=== PATIENT | female | born 1945 | race Caucasian/White ===

== ENCOUNTER 2021-02-01 17:13 | Inpatient (IN) | payer OTHER ==
[~2021-02-01] VITALS: Ht 165.1 cm; Wt 72.5 kg
[2021-02-01 17:20] VITALS: BP 205/93
[2021-02-01] MEDS ORDERED: BACTRIM DS TAB1 EACH PO (17:29)
[2021-02-01] MEDS ORDERED: LIPITOR40 MG PO (17:29)
[2021-02-01] MEDS ORDERED: METFORMIN HCL500 M3 PO (17:29)
[2021-02-01 17:35] LABS: URINE BLOOD 3+ (Negative); URINE CLARITY CLOUDY; URINE COLOR BROWN; URINE GLUCOSE-RANDOM NEGATIVE (Negative); URINE KETONES TRACE (Negative); URINE PROTEIN 3+ (Negative)
[2021-02-01 17:36] LABS: HEMATOCRIT 32.6 % (37.0-47.0); HEMOGLOBIN 10.5 gm/dL (12.0-15.0); MCH 26.7 pg (26.0-34.0); MCHC 32.2 g/dL (28.0-37.0); MCV 82.9 fL (80.0-100.0); MPV 7.5 fl. (7.2-11.1); RBC 3.94 mil/uL (4.20-5.00); WBC 14.6 thou/uL (4.0-11.0)
[2021-02-01 17:37] LABS: ICTOTEST (BILI CONFIRMATORY) Negative (Negative); URINE BILIRUBIN 2+ (Negative); URINE LEUKOCYTES-REFLEX 3+ (Negative); URINE NITRITE-REFLEX POSITIVE (Negative)
[2021-02-01 17:41] LABS: BACTERIA-REFLEX >30 Many /HPF (None Seen); CASTS None Seen /LPF (None Seen); CRYSTALS None Seen /LPF (None Seen); SQUAMOUS 0-3 Few /LPF (0-3); URINE RBC >20 Many /HPF (0-2); URINE WBC-REFLEX >25 Many /HPF (0-5)
[2021-02-01 17:45] LABS: CALCIUM 8.8 mg/dL (8.5-10.1); CREATININE 1.7 mg/dL (0.6-1.3); POTASSIUM 3.9 mmol/L (3.5-5.1)
[2021-02-01 19:53] VITALS: BP 152/84
[2021-02-01 20:44] VITALS: BP 174/87
[2021-02-01] MEDS ORDERED: RESTORIL30 MG PO (21:26)
[2021-02-01] MEDS ORDERED: GABAPENTIN100 MG PO (21:27)
[2021-02-01] MEDS ORDERED: HYDROCHLOROTH12.5 M2 PO (21:28)
[2021-02-01] MEDS ORDERED: VENLAFAXINE HC150 MG PO (21:28)
[2021-02-01] MEDS ORDERED: LISINOPRIL20 MG PO (21:29)
[2021-02-01] MEDS ORDERED: IBUPROFEN200 MG PO (21:30)
[2021-02-01] MEDS ORDERED: ACETAMINOPHEN650 M5 PO (21:31)
[2021-02-01 23:51] VITALS: BP 135/58
[2021-02-02 04:00] VITALS: BP 148/70
[2021-02-02 07:56] VITALS: BP 164/82
--- NOTE | 2021-02-02 08:01 | NUR ---
PT ADMITTED TO ROOM 222 DURING ARRT TECHNOLOGIST; VSS, A+OX4, ROOM AIR, NS INFUSING, UP SBA, FALL RISK. SHE IS ABLE TO COMMUNICATE HER NEEDS TO STAFF EFFECTIVELY. CURRENT PAIN MEDICATION REGIMEN HAS BEEN ADEQUATE FOR CONTROLLING HER PAIN UP TO THIS TIME.
--- NOTE | 2021-02-02 08:28 | NUR ---
ASSUMED CARE OF PT THIS AM AROUND 714- ARGON TESTER IN PLACE ORDERED, TRACING SR- UPON ASSESSMENT PT NOTED TO BE RESTING IN BED- A&O X4, ANXIOUS ABOUT WNATING TO GO HOME THIS AM- SBA WITH TRANSFERS FOR SAFETY- CONT OF B/B- LCTA, RESP EVEN AND UN-LABORED- VSS, O2 SAT 95% ON RA- ABD SOFT/ROUND/NON-TENDER, BS X4 QUADS- LAST BM REPORTED X2 DAYS AGO- IV NOTED TO RIGHT WRIST INTACT, IVF INFUSSING PRESCIBED- BS MONITORED ORDERED- PT DENIES ANY C/O PAIN/DISCOMFORT AT THIS TIME- CALL LIGHT AND PERSONAL BELONGINGS WITH IN REACH- HOURLY ROUNDS IN PLACE R/T SAFETY/NEEDS- ALL NEEDS MET AT THIS TIME
--- NOTE | 2021-02-02 10:41 | NUR ---
CM ASSESSMENT: PT A&O, INDEPENDENT WITH ADL'S, AND ACTIVE. PT RESIDES AT HOME WITH SPOUSE. PT USES 0 DME. PT HAS 0 HX OF HH OR SNF. NO CM D/C PLANNING NEEDS ANTICIPATED. CM WILL REMAIN AVAILABLE TO ASSIST AND FOLLOW NEEDED.
--- NOTE | 2021-02-02 11:28 | EKG ---
[place] [address] ELECTROCARDIOGRAM REPORT Name: PRESTON JAIN Room: [address] [place] .#: [id number] Admission: 02/01/21 Attend Phys: Damien Mario, Discharge: Date of : 47 Date of Service: 02/01/21 1743 Report #: [id number] THIS REPORT FOR: //name// [facility] ED Test Date: 2021-02-01 Test Time: 17:43:13 Pat Name: PRESTON JAIN Department: Patient ID: [id number]- Room: Gender: F Trader: : 1942-04-01 Requested By: Emeterio Meza Order Number: [id number] MD: Bjorn Eaton Measurements Intervals Pioneer Rate: 105 P: 61 MN: 161 QRS: 46 QRSD: 77 T: 44 QT: 329 QTc: 435 Interpretive Statements Sinus tachycardia Anterior infarct, old Possible anterior scar No previous ECG available for comparison Electronically Signed On 02-02-2021 11:28:35 CDT by Bjorn Eaton [email or web address] <ELECTRONICALLY SIGNED> By: Bjorn Eaton MD, [facility] 02/02/21 1128 1743 1743 Bjorn Eaton MD, [facility] /EPI
[2021-02-02 11:56] VITALS: BP 150/87
[2021-02-02 16:00] VITALS: BP 176/86
[2021-02-02 20:00] VITALS: BP 195/92
[2021-02-03 01:03] VITALS: BP 151/59
--- NOTE | 2021-02-03 02:31 | NUR ---
PT ADMIT TO ROOM 223 AT 1999. ALERT ORIENTED. MED REC UPDATED. DR BURDICK NOTIFIED. HOME MEDS NOT RESTARTED. PT ON CARDIZEM QTT AT 5MG/HR. PT AFIB 100-120. ON 2 LITERS NC. UP AD LUBNA IN ROOM.
[2021-02-03 04:04] VITALS: BP 165/86
[2021-02-03 04:21] LABS: HEMATOCRIT 31.4 % (37.0-47.0); HEMOGLOBIN 10.5 gm/dL (12.0-15.0); MCH 27.3 pg (26.0-34.0); MCHC 33.4 g/dL (28.0-37.0); MCV 81.8 fL (80.0-100.0); MPV 7.8 fl. (7.2-11.1); RBC 3.84 mil/uL (4.20-5.00); RDW-CV 15.1 % (10.5-14.5); WBC 6.8 thou/uL (4.0-11.0)
[2021-02-03 04:32] LABS: CALCIUM 8.7 mg/dL (8.5-10.1); POTASSIUM 3.6 mmol/L (3.5-5.1)
[2021-02-03 08:00] VITALS: BP 185/92
[2021-02-03 12:00] VITALS: BP 142/78
[2021-02-03 16:00] VITALS: BP 147/76
[2021-02-03 20:00] VITALS: BP 181/94
[2021-02-04] VITALS: BP 160/86
--- NOTE | 2021-02-04 01:24 | NUR ---
PT ALERT ORIENTED. UP AD LUBNA IN ROOM. AIR QUALITY SPECIALIST TRACING SR 90S. PT HAS PROBABLE DC TOMORROW.
[2021-02-04 04:00] VITALS: BP 168/88
[2021-02-04] MEDS ORDERED: CEFDINIR300 MG PO (07:48)
[2021-02-04 08:00] VITALS: BP 166/114
[2021-02-04 09:09] VITALS: BP 166/114
--- NOTE | 2021-02-04 09:46 | NUR ---
VS CHARTED, SR ON TELE, ROOM AIR, UP AD LUBNA, HOURLY ROUNDING PERFORMED, POSSESSIONS WITHIN REACH. REC DISCHARGE ORDERS, REVIEWED WITH PATIENT, CARE NOTE GIVEN, MEDS ORDERED ELECTRONICALLY, TELE MONITOR AND IV REMOVED WITHOUT COMPLICATION, PATIENT TAKEN IN WHEELCHAIR BY NURSING STAFF TO ER EXIT, PICKED UP BY SPOUSE IN FAMILY CAR
== END 2021-02-04 10:11 | disposition home or self-care (01) | DRG 871 ==
LOC: EDBD 17:13 → M.ERS 17:13 → M.2W 18:02 → M.TBA-ER 18:02 → M.2W 20:15
PROVIDERS: Emergency Medicine Emergency Medical Services; Family Medicine; ADMIT Internal Medicine; ATTEND Internal Medicine
DX: A41.9 Sepsis, unspecified organism (principal); N17.0 Acute kidney failure with tubular necrosis; N39.0 Urinary tract infection, site not specified; E87.1 Hypo-osmolality and hyponatremia; I16.0 Hypertensive urgency; B96.89 Other specified bacterial agents as the cause of diseases classified elsewhere; I10 Essential (primary) hypertension; E78.5 Hyperlipidemia, unspecified; E11.65 Type 2 diabetes mellitus with hyperglycemia; Z20.822 Contact with and (suspected) exposure to COVID-19; Z79.84 Long term (current) use of oral hypoglycemic drugs; Z79.899 Other long term (current) drug therapy

== ENCOUNTER 2021-03-27 12:45 | Emergency (ER) | payer OTHER ==
[~2021-03-27] VITALS: Ht 165.1 cm; Wt 65.8 kg
[~2021-03-27 12:45] MED LIST: ACETAMINOPHEN650 M5 PO; BACTRIM DS TAB1 EACH PO; CEFDINIR300 MG PO; GABAPENTIN100 MG PO; HYDROCHLOROTH12.5 M2 PO; IBUPROFEN200 MG PO; LIPITOR40 MG PO; LISINOPRIL20 MG PO; METFORMIN HCL500 M3 PO; RESTORIL30 MG PO; VENLAFAXINE HC150 MG PO
[2021-03-27] MEDS ORDERED: NORCO5 PO ×2 (16:06→16:09)
[2021-03-27 16:38] VITALS: BP 205/105
== END 2021-03-27 16:39 | disposition home or self-care (01) ==
LOC: M.ERS 12:45
DX: S52.121A Displaced fracture of head of right radius, initial encounter for closed fracture (principal); S00.11XA Contusion of right eyelid and periocular area, initial encounter; S00.33XA Contusion of nose, initial encounter; R07.81 Pleurodynia; E11.9 Type 2 diabetes mellitus without complications; I10 Essential (primary) hypertension; E78.00 Pure hypercholesterolemia, unspecified; W01.0XXA Fall on same level from slipping, tripping and stumbling without subsequent striking against object, initial encounter; Y93.89 Activity, other specified; Y92.89 Other specified places as the place of occurrence of the external cause; Y99.8 Other external cause status